=== PATIENT | female | born 1960 | race Caucasian/White ===

== ENCOUNTER 2021-06-23 18:26 | Emergency (ER) | payer BC, OTHER ==
[2021-06-23] MEDS ORDERED: Tetracaine HCl/PF 0.5% 4 ML Bottle EYERT ONE (20:05)
[2021-06-23] MEDS ORDERED: Fluorescein 1 MG Ophth Strip EYERT ONE (20:18)
[2021-06-23 21:01] LABS: ANION GAP 10.5 mEq/L (7-13)
[2021-06-23] MEDS ORDERED: Iopamidol 612 MG/ML 100 ML Bottle IVPUSH ONE (21:13)
[2021-06-23] MEDS ORDERED: Clindamycin HCl 150 MG Cap PO ONE (22:49)
[2021-06-23] MEDS ORDERED: Gentamicin 0.3% Ophth Soln 5 ML Bottle ONE (22:56)
[2021-06-24] MEDS ORDERED: Gentamicin 0.3% Ophth Soln 5 ML Bottle EYERT SCH (09:00)
== END 2021-06-23 23:06 | disposition home or self-care (01) ==
LOC: DL.ED 18:26
DX: S05.01XA Injury of conjunctiva and corneal abrasion without foreign body, right eye, initial encounter (principal); L03.211 Cellulitis of face; H10.31 Unspecified acute conjunctivitis, right eye; I10 Essential (primary) hypertension; Z79.899 Other long term (current) drug therapy; Z79.82 Long term (current) use of aspirin; X58.XXXA Exposure to other specified factors, initial encounter
CPT/HCPCS: 36415; 70487; 80053; 85025; 99282; 99284; A9270; Q9967